=== PATIENT | male | born 1965 | race African-American/Black ===

== ENCOUNTER → 2018-08-09 | Emergency (ER) | payer OTHER ==
[~2018-08-09] VITALS: Ht 170.2 cm; Wt 88.5 kg
[~2018-08-09] MED LIST: AMLODIPINE BESY10 MG; PRINIVIL10 MG
== END | disposition left against medical advice (07) ==
LOC: ER 00:16
DX: Z53.20 Procedure and treatment not carried out because of patient's decision for unspecified reasons (principal)